=== PATIENT | female | born 1955 | race American Indian/Alaskan Native ===

== ENCOUNTER 2017-01-11 11:09 | Outpatient (CLI) | payer MEDICAID ==
--- NOTE | 2017-01-11 14:11 | Ultrasound Report ---
ULTRASOUND RENAL BILATERAL HISTORY: Calculus of kidney, renal mass. TECHNIQUE: transabdominal ultrasound with color Doppler interrogation. FINDINGS: Scans of the kidneys show normal renal contours. There is normal central calyceal clustering and good preservation of the cortical thickness. There is no evidence of mass or hydronephrosis. There appear to be a few punctate calyceal stones in both kidneys. The views of the bladder and the region of the ureters appear normal. IMPRESSION: Punctate bilateral calyceal stones. No hydronephrosis.
== END 2017-01-11 11:10 | disposition home or self-care (01) ==
LOC: US 11:09
PROVIDERS: ATTEND Urology
DX: N20.0 Calculus of kidney (principal); N28.89 Other specified disorders of kidney and ureter; I10 Essential (primary) hypertension
CPT/HCPCS: 76770

== ENCOUNTER 2017-12-27 15:14 | Outpatient (CLI) | payer MEDICAID ==
--- NOTE | 2017-12-27 16:26 | XRay Report ---
FINAL REPORT PROCEDURE: XR ABDOMEN 1V AP TECHNIQUE: Abdominal radiograph, single supine AP view. HISTORY: CALCULUS OF KIDNEY COMPARISON: No prior studies are available for comparison. FINDINGS: There is marked thoracolumbar scoliosis convex to the right. Moderate degenerative changes seen in the lumbar spine. Surgical clips seen in the right upper quadrant. A stabilizing jennifer is visualized extending from the mid lumbar spine superiorly to the thoracic spine. The entire extent of the jennifer is not visualized. Moderate amount of stool seen in the left side of the colon. Bowel gas pattern otherwise unremarkable. No abnormal calcifications are seen that would suggest renal calculi on this exam. Mild degenerative changes seen in the SI joints bilaterally. Enteric suture line appears to be visualized in the right lower quadrant. IMPRESSION: No definite renal calculi are visualized. Thoracolumbar scoliosis. Prior fixation procedure thoracic and lumbar spine partially visualized. Moderate degenerative changes seen in the lumbar spine. Mild degenerative changes seen SI joints. Enteric suture line or staple line visualize right lower quadrant.
== END 2017-12-27 15:15 | disposition home or self-care (01) ==
LOC: XRAY 15:14
PROVIDERS: ATTEND Urology
DX: M41.85 Other forms of scoliosis, thoracolumbar region (principal); M47.896 Other spondylosis, lumbar region; I10 Essential (primary) hypertension; Z90.710 Acquired absence of both cervix and uterus; Z90.49 Acquired absence of other specified parts of digestive tract
CPT/HCPCS: 74018